=== PATIENT | female | born 1970 | race Caucasian/White ===

== ENCOUNTER 2019-05-27 18:46 | Emergency (ER) | payer BC ==
--- OUTSIDE RECORDS SUMMARY | 2019-05-27 18:48 | XMS REPORT ---
:1970 [facility] Address [address] [place] [address] Care Team Providers Name Role Phone MARY STACY Unavailable Unavailable Payers Payer Name Policy Type Policy Number Effective Date Expiration Date Problems This patient has no known problems. Allergies, Adverse Reactions, Alerts This patient has no known allergies or adverse reactions. Medications This patient has no known medications. Results Test Description Test Time Test Comments Text Results Atomic Results Result Comments TISSUE EXAM 2019-01-09 Surgical Pathology Report 14:01:00 Case: [id number] Authorizing Provider: Mary Stacy, Collected: 01/03/2019 Shila KIRBY Ordering Location: [facility] Received: 01/03/2019 1256 SERVICES Pathologist: Lucila Bauer MD Specimen: Breast, Left, Left Breast Lumpectomy Loadrant - Long Stitch Lateral, Short Stitch Superior, Ink Wilde Deep - XRay BREAST, LEFT, NEEDLE LOCALIZED LUMPECTOMY: - DUCTAL CARCINOMA IN SITU (DCIS) - GREATEST MICROSCOPIC MEASUREMENT : 16MM - PRESENT SCATTERED FOCI - IN 17 OF 70 SLIDES - OVER A MACROSCOPIC (GROSS) SPAN OF 53MM - NUCLEAR GRADE : 3/3 BY SBR CRITERIA - GROWTH PATTERN : SOLID, CLINGING, COMEDO - ASSOCIATED WITH CENTRAL NECROSIS - ASSOCIATED WITH CALCIFICATIONS - SURGICAL MARGINS : POSITIVE - LATERAL : POSITIVE - DCIS AT INKED MARGIN - INFERIOR : 0.1MM - ANTERIOR : 4MM - ALL OTHER MARGINS >10MM - BIOPSY SITE CHANGES (CLIP X 1) IDENTIFIED - ATYPICAL DUCTAL HYPERPLASIA - ATYPICAL LOBULAR HYPERPLASIA - SCATTERED FOCI - FLAT EPITHELIAL ATYPIA - COLUMNAR CELL CHANGES AND HYPERPLASIA - ASSOCIATED MICROCALCIFICATION - USUAL DUCTAL HYPERPLASIA - SCLEROSING ADENOSIS - APOCRINE METAPLASIA LINED CYSTSD - BENIGN BREAST TISSUE ASSOCIATED WITH CALCIFICATIONS Signing Pathologist Direct Phone Line: [phone] signed by Lucila Bauer MD on 01/09/2019 at 2:01 PMTUMOR STAGING (PATHOLOGY) Anatomic site of tumor : Left breastHistologic type : DCIS onlyHistologic grade : DCIS only; 3/3 by SBR criteriaTumor size : DCIS only; 16mmPrimary tumor (T) : pTis (DCIS)Lymph node (N) : pNxStage grouping : 0Margins : Positive (DCIS at lateral and close to inferior)The lumpectomy specimen contains scattered foci of high grade DCIS spanning a gross area measuring 53mm. Within this area, the largest contiguous focus of DCIS measures 16mm. The DCIS is present at the inked lateral margin and extends very close to (approx. 0.1mm) from the inked inferior margin of resection. DCIS OF THE BREAST (Breast DCIS - All Specimens)CLINICAL Radiologic Finding: Calcifications SPECIMEN Procedure: Excision (less than total mastectomy) Specimen Laterality: Left TUMOR Histologic Type: Ductal carcinoma in situ Size (Extent) of DCIS: Estimated size of DCIS greatest dimension in Millimeters (mm) is at least: 16 Millimeters (mm) Architectural Patterns: Comedo Architectural Patterns: Solid Nuclear Grade: Grade III (high) Accessory Findings: Necrosis: Present, central (expansive "comedo" necrosis) Microcalcifications: Present in DCIS Microcalcifications: Present in nonneoplastic tissue MARGINS Margins: Positive for DCIS Positive Margin(s): Lateral : Minimal / moderate LYMPH NODES Regional Lymph Nodes: No lymph nodes submitted or found PATHOLOGIC STAGE CLASSIFICATION (pTNM, AJCC 8th Edition) TNM Descriptors: Not applicable Primary Tumor (pT): pTis (DCIS) Regional Lymph Nodes (pN): Category (pN): pNX A. 07151 X 1Ductal carcinoma in situ of left breast A. Breast, left, left breast lumpectomy, long stitch lateral, short stitch superior, ink wilde Zachery. The specimen is received fresh for x-ray labeled with the patient's name and MR number as "breast left" with the description of "left breast lumpectomy, long stitch lateral, short stitch superior and inked wilde deep" and is an 18 gm, 7 x 8 x 2.5 cm, irregular, needle-localized partial mastectomy. The specimen is oriented with a short stitch superior, a long stitch lateral and ink deep. Two guide wires are exiting from superalateral and inferolateral portions of the specimen. The specimen is serially sectioned from lateral to medial into 12 consecutively ordered slices. No visible or palpable mass is identified. A clip is identified in slice #3, and it is towards the posterior end of the specimen. There are scattered irregular fibrous tissue in the breast parenchyma. Multiple foci of small calcifications were found by Faxitron. The breast parenchyma mainly consists of adipose tissue, 80%, and 20% fibrous tissue. It is enirely submitted.Ink code: Blue-posterior, red-anterior, black-inferior, and yellow-superior.Section code: A1-A5, lateral margin, perpendicular sections; A6-A11, slice #2 (A6 posterior margin, A7 anterior margin, A9 and A4 superior margins and A11 and A10 inferior margins); A12-A17, slice #3 (A12 posterior margin, A13 anterior margin, A14 contains clip and superior margin, A15 superior margin, A16 and E88oihqjbuv margin); A18-A23, slice #4 (A18 posterior and anterior margins, A19 and A20 superior margin, A21 and A22 inferior margins); A24-A30, slice #5 (A24 posterior and anterior margins, A25-A27 superior margin, A28-A30 inferior margin); A31-A37, slice #6 (A31 anterior and posterior margins, A33 and A34 superior margin, A35-A37 inferior margins); A38-A42, slice #7 (A38 anterior and posterior margins, A40 and 41 superior margin and A42 inferior margin); A43-A48, slice #8 (A43 anterior and posterior margins, A45 and A46 superior margin and A44 and A47 inferior margin); A49-A52, slice #9 (A49 posterior and anterior margins); A53-A57, slice #10 (A53 anterior and posterior margins); A58-A62, slice #11 (A58 contains anterior and posterior margins); A63-A70, medial margin, perpendicular sections. SM/ewPerformed.[facility], Department of Pathology, [address], [place] [address], MM, DIGITAL, 2019-01-03 This is for #[id number] - MM, MAMMO, 13:23:00 bracketingReason for DIGITAL, MAMMO, PATHOLOGY, PATHOLOGY, exam:->DCIS of the left LOCAL, LEFTNEEDLE LOCAL, LEFT breast LOCALIZATION: 01/03/2019PATIENT CONSENT: The procedure, risks and benefits, alternatives were discussed with the patient. Informed consent was obtained. A time-out was performed. A bracketed wire localization was performed for residual calcifications and biopsy clip in the lower outer left breast, middle and posterior depth. Local anesthetic was utilized. Two wires were placed from lateral approach under digital mammographic guidance to bracket the area of interest. Post-procedure digital mammogram confirmed appropriate positioning of the wires. IMPRESSION: NEEDLE LOCALIZATION Evelyn Dahl M.D. /:01/03/2019 13:23:26 Attending Technologist: Silvia Slater RT(R)(M), [facility] Oil Spot Washer: Bria Dawson RT(R)(M), [facility] [id number] , DIGITAL, 2019-01-03 Please bracket #[id number] - MM, MAMMO, 13:22:00 calcifications with the DIGITAL, MAMMO, PATHOLOGY, PATHOLOGY, clipReason for LOCAL, LEFTNEEDLE LOCAL, LEFT exam:->DCIS of the left LOCALIZATION: 01/03/2019PATIENT breast CONSENT: The procedure, risks and benefits, alternatives were discussed with the patient. Informed consent was obtained. A time-out was performed. A bracketed wire localization was performed for residual calcifications and biopsy clip in the lower outer left breast, middle and posterior depth. Local anesthetic was utilized. Two wires were placed from lateral approach under digital mammographic guidance to bracket the area of interest. Post-procedure digital mammogram confirmed appropriate positioning of the wires. IMPRESSION: NEEDLE LOCALIZATION Evelyn Dahl M.D. mc/:01/03/2019 13:22:59 Attending Technologist: Silvia Slater RT(R)(M), [facility] Oil Spot Washer: Bria Dawson RT(R)(M), [facility] [id number] C METABOLIC PANEL 2019-01-02 13:07:00 Test Item Value Reference Range Comments SODIUM (BEAKER) (test 142 meq/L 136-145 rmuo=892) POTASSIUM (BEAKER) (test 4.9 meq/L 3.5-5.1 dsvp=544) CHLORIDE (BEAKER) (test 111 meq/L 98-107 vmbq=854) CO2 (BEAKER) (test yjsl=014) 28 meq/L 22-29 BLOOD UREA NITROGEN (BEAKER) 16 mg/dL 7-21 (test hlqw=977) CREATININE (BEAKER) (test 0.74 mg/dL 0.57-1.25 vfjr=369) GLUCOSE RANDOM (BEAKER) 81 mg/dL 70-105 (test egkj=777) CALCIUM (BEAKER) (test 9.3 mg/dL 8.4-10.2 vzxz=635) EGFR (BEAKER) (test 84 mL/min/1.73 sq m ESTIMATED GFR IS NOT rzug=5507) ACCURATE CREATININE CLEARANCE IN PREDICTING GLOMERULAR FILTRATION RATE. ESTIMATED GFR IS NOT APPLICABLE FOR DIALYSIS PATIENTS. SCREEN, [id number] 12:57:00 Test Item Value Reference Range Comments TEST URINE (BEAKER) (test csgy=761) Negative CBC W/PLT COUNT & AUTO [id number] 12:32:00 Test Item Value Reference Range Comments WHITE BLOOD CELL COUNT (BEAKER) (test eqgu=847) 5.7 K/ L 3.5-10.5 RED BLOOD CELL COUNT (BEAKER) (test uauq=655) 4.83 M/ L 3.93-5.22 HEMOGLOBIN (BEAKER) (test jxek=929) 14.6 GM/DL 11.2-15.7 HEMATOCRIT (BEAKER) (test ffqn=153) 44.5 % 34.1-44.9 MEAN CORPUSCULAR VOLUME (BEAKER) (test fsfb=503) 92.1 fL 79.4-94.8 MEAN CORPUSCULAR HEMOGLOBIN (BEAKER) (test 30.2 pg 25.6-32.2 wxra=578) MEAN CORPUSCULAR HEMOGLOBIN CONC (BEAKER) (test 32.8 GM/DL 32.2-35.5 slcf=190) RED CELL DISTRIBUTION WIDTH (BEAKER) (test 12.4 % 11.7-14.4 qalw=299) PLATELET COUNT (BEAKER) (test fdni=650) 335 K/CU MM 150-450 MEAN PLATELET VOLUME (BEAKER) (test arty=747) 11.2 fL 9.4-12.3 NUCLEATED RED BLOOD CELLS (BEAKER) (test 0 /100 WBC 0-0 jele=665) NEUTROPHILS RELATIVE PERCENT (BEAKER) (test 48 % hlcm=006) LYMPHOCYTES RELATIVE PERCENT (BEAKER) (test 42 % bucd=017) MONOCYTES RELATIVE PERCENT (BEAKER) (test 7 % xkxl=530) EOSINOPHILS RELATIVE PERCENT (BEAKER) (test 2 % ewee=711) BASOPHILS RELATIVE PERCENT (BEAKER) (test 1 % mgiv=485) NEUTROPHILS ABSOLUTE COUNT (BEAKER) (test 2.74 K/ L 1.56-6.13 aijb=703) LYMPHOCYTES ABSOLUTE COUNT (BEAKER) (test 2.40 K/ L 1.18-3.74 vxgv=185) MONOCYTES ABSOLUTE COUNT (BEAKER) (test 0.38 K/ L 0.24-0.36 yhce=460) EOSINOPHILS ABSOLUTE COUNT (BEAKER) (test 0.11 K/ L 0.04-0.36 ezca=439) BASOPHILS ABSOLUTE COUNT (BEAKER) (test 0.03 K/ L 0.01-0.08 axxb=251) IMMATURE GRANULOCYTES-RELATIVE PERCENT (BEAKER) 0 % 0-1 (test gmwf=7573) BREAST,[id number] 18:15:00 RUN DATE: 11/02/18 [facility] PAGE 1 RUN TIME: 1915 Specimen Inquiry RUN USER: INTERFACE PATIENT: MABLE GUAN LOC: REINA #: [id number] AGE/SX: 48/F ROOM: RE10/26/18REG DR: Rach Arriola MD : 74 BED: DIS: STATUS: PRE REF TLOC: SPEC #: [id number] RECD: 10/26/18 STATUS: ED REYNOLDS #: [id number] FAISAL: 10/26/18- SUBM DR: Rach Arriola MD ENTERED: 10/27/18 SP TYPE: BREABX OTHR DR: Tasha Chase MD ORDERED: LEVEL IV/2 CODES: [id number] - BREAST, NOS COPIES TO: Rach Arriola MD [address] [place] [address] [place] [address] [place] [address] PROCEDURES: LEVEL IV (Incomplete) TISSUES: BREAST, NOS - RIGHT AND LEFT BREAST BIOPSY CLINICAL HISTORY 48 year old, suspicious calcs, 9 g x 9 cores; indet mass, prob FA, 14 g x 3 ( wpd) NOTE: LEFT breast: Biopsy: 10/26/18 @ 1350 In formalin: 10/26 @ 1432 Out of formalin: 10/27/18 @ 1824 RIGHT breast 9:00 (1.4 cm) : Biopsy: 10/26/18 @ 1435 In formalin: 10/26/18 @ 1436 Out of formalin: 10/27/18 @ 1824 FINAL DIAGNOSIS Specimen #1 LEFT breast, stereotactic biopsies: - 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 - central comedo necrosis - microcalcifications present - prominent paralobular chronic inflammation - prognostic markers for ER/ME are performed on block A1 CONTINUED ON NEXT PAGE RUN DATE: 11/02/18 [facility] PAGE 2 RUN TIME: 1915 Specimen Inquiry RUN USER: INTERFACE SPEC #: [id number] PATIENT : MABLE GUAN #[id number] (Continued) FINAL DIAGNOSIS (Continued) Specimen #2 RIGHT breast 9:00 mass (1.4 cm), core biopsies: - fibroadenoma COMMENT: The technical components were performed at [facility] [place], [address] [place] [address], [address], [place] [address]. The interpretation is provided by [facility], [address] [place] [address], [place] [address]. Controls receivedfrom [facility] stained appropriately. The following results are received from [facility], [place], [place] on November 02, 2018. BODY SITE: LEFT breast - [id number] HISTOLOGY IMAGE ANALYSIS, GLOBAL INTERPRETATION: ANALYSIS IS PERFORMED ON THE IN-SITU COMPONENT PRESENT. ER: POSITIVE Tumor Stained: 60% Intensity: 2+ Internal Control: Present, positive PgR: POSITIVE Tumor Stained: 5% Intensity: 2+ Internal Control: Present, positive COMMENT: Specimen handling met the requirements specified in the latest version of the ASCO/CAP guidelines. Tissue code 1 CPT code(s): 65293 x2, 00873-21, 06664-05 x3 cds/wpd 10/30/18 cds/wpd 11/01/18 cds/wpd GROSS DESCRIPTION ANATOMIC SOURCE OF TISSUE (per Requisition): 1. LEFT breast 2. RIGHT breast 9:00 (1.4 cm) Each specimen is labeled with the patient's name and medical record number. CONTINUED ON NEXT PAGE RUN DATE: 11/02/18 [facility] PAGE 3 RUN TIME: 1915 Specimen Inquiry RUN USER: INTERFACE SPEC #: [id number] PATIENT: MABLE GUAN #[id number] (Continued)-- GROSS DESCRIPTION (Continued) Specimen #1 is designated "LEFT breast" and consists of multiple loera-pink and yellow, fibrofatty, cylindrical soft tissues, 0.2 - 2.3cm in length, submitted in toto as A1 and A2, with microcalcifications as A1. Specimen #2 isdesignated "RIGHT breast 9:00" and consists of three loera-white, cylindrical , firm tissues, 0.6 - 1.4 cm in length, submitted in toto as B1. jm/wpd @ 8944 MICROSCOPIC DESCRIPTION Specimen #1 - tissue cores of LEFT breast, as seen in blocks A1 and A2, show a high-grade ductal carcinoma in- situ with comedo necrosis and microcalcifications. Prominent paralobular chronic inflammation is present and in some areas obscures duct outlines. Immunostains for myoepithelial markers (SMM-HC and p63) performed on blocks A1 and A2 are consistent with in-situ carcinoma. Specimen #2 - tissue cores of RIGHT breast 9:00 (1.4 cm mass) seen in block B1 are consistent with a fibroadenoma. cds/wpd @ 1019 / cds/wpd 11/01/18 Signed Brooks Mae 11/02/18 1815 ---- -------- END OF REPORT
--- NOTE | 2019-05-27 19:45 | RAD REPORT ---
EXAM DESCRIPTION: CT - CTFB CLINICAL HISTORY: Facial pain;Trauma Fall, trauma, facial pain and swelling. COMPARISON: No comparisons TECHNIQUE: Axial 2 mm thick images of the face were obtained with sagittal and coronal reconstructio n images. All CT scans are performed using dose optimization technique as appropriate and may include automated exposure control or mA/KV adjustment according to patient size. FINDINGS: No acute facial bone fracture is seen.The mandible is intact. The globes and orbital contents are grossly unremarkable.The paranasal sinuses and mastoids are clear . IMPRESSION: Negative for facial bone fracture.
--- NOTE | 2019-05-27 19:51 | EDPHYS ---
Physician Documentation [facility] Name: Brit Wilson Age: 48 yrs Sex: Female : 1970 Arrival Date: 05/27/2019 Time: 18:48 Bed 15 Private MD: ED Physician Evangelist Moncada HPI: 05/27 19:14 This 48 yrs old Female presents to ER via Ambulatory with complaints of Fall kb Injury. 19:14 Details of fall: The patient fell from an upright position, horse got spooked and pt kb was trying to move out of it's way when she got tripped by her sandal and fell hitting the fence post. Onset: The symptoms/episode began/occurred just prior to arrival. Associated injuries: The patient sustained injury to the head, abrasion, contusion, injury to the chest, specifically the left lateral posterior chest and left lateral anterior chest, tenderness, left bicep, ecchymosis, swelling. Severity of symptoms: At their worst the symptoms were mild, moderate, in the emergency department the symptoms are unchanged. The patient has not experienced similar symptoms in the past. The patient has not recently seen a physician. 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 - Social history:: Smoking status: Patient/guardian denies using tobacco. - Ebola Screening: : Patient denies travel to an Ebola-affected area in the 21 days before illness onset. ROS: 19:11 Constitutional: Negative for fever, chills, and weight loss, Eyes: Negative for injury, kb pain, redness, and discharge, ENT: Negative for injury, pain, and discharge, Neck: Negative for injury, pain, and swelling, Respiratory: Negative for shortness of breath, cough, wheezing, and pleuritic chest pain, Abdomen/GI: Negative for abdominal pain, nausea, vomiting, diarrhea, and constipation, Back: Negative for injury and pain, Neuro: Negative for headache, weakness, numbness, tingling, and seizure. 19:11 Cardiovascular: Positive for chest pain, of the left lateral anterior chest and left lateral posterior chest. 19:11 MS/extremity: Positive for ecchymosis, pain, swelling, tenderness, of the left bicep. 19:11 Skin: Positive for abrasion(s), ecchymosis, swelling, of the left cheek, left eye, left congregation and left jaw. Exam: 19:11 Constitutional: This is a well developed, well nourished patient who is awake, alert, kb and in no acute distress. Eyes: Pupils equal round and reactive to light, extra-ocular motions intact. Lids and lashes normal. Conjunctiva and sclera are non-icteric and not injected. Cornea within normal limits. Periorbital areas with no swelling, redness, or edema. ENT: Nares patent. No nasal discharge, no septal abnormalities noted. Tympanic membranes are normal and external auditory canals are clear. Oropharynx with no redness, swelling, or masses, exudates, or evidence of obstruction, uvula midline. Mucous membranes moist. Neck: Trachea midline, no thyromegaly or masses palpated, and no cervical lymphadenopathy. Supple, full range of motion without nuchal rigidity, or vertebral point tenderness. No Meningismus. Cardiovascular: Regular rate and rhythm with a normal S1 and S2. No gallops, murmurs, or rubs. Normal PMI, no JVD. No pulse deficits. Respiratory: Lungs have equal breath sounds bilaterally, clear to auscultation and percussion. No rales, rhonchi or wheezes noted. No increased work of breathing, no retractions or nasal flaring. Abdomen/GI: Soft, non-tender, with normal bowel sounds. No distension or tympany. No guarding or rebound. No evidence of tenderness throughout. Neuro: Awake and alert, GCS 15, oriented to person, place, time, and situation. Cranial nerves II-XII grossly intact. Motor strength 5/5 in all extremities. Sensory grossly intact. Cerebellar exam normal. Normal gait. 19:11 Head/face: Noted is no obvious of injury or deformity except abrasion(s), that are mild, of the left congregation and left jaw, ecchymosis, that is mild, of the left cheek and left eye, erythema, that is moderate, of the left cheek. 19:11 Chest/axilla: Inspection: normal, Palpation: tenderness, that is moderate, of the left lateral posterior chest and left lateral anterior chest, that totally reproduces the patient's complaints, Axilla: are normal. 19:11 Musculoskeletal/extremity: Extremities: grossly normal except: noted in the left bicep: ecchymosis, pain, swelling, tenderness, ROM: intact in all extremities, Circulation is intact in all extremities. Sensation intact. Vital Signs: 18:56 BP 142 / 96; Pulse 84; Resp 18; Temp 97.0; Pulse Ox 96% on R/A; Weight 90.72 kg (R); aj1 Height 5 ft. 5 in. (165.10 cm) (R); Pain 5/10; 20:10 BP 133 / 84; Pulse 79; Resp 19; Temp 97.3; Pulse Ox 97% on R/A; Pain 4/10; aa1 18:56 Body Mass Index 33.28 (90.72 kg, 165.10 cm) aj1 Han Coma Score: 18:56 Eye Response: spontaneous(4). Verbal Response: oriented(5). Motor Response: obeys aj1 commands(6). Total: 15. Trauma Score (Adult): 18:56 Eye Response: spontaneous(1); Verbal Response: oriented(1); Motor Response: obeys aj1 commands(2); Systolic BP: > 89 mm Hg(4); Respiratory Rate: 10 to 29 per min(4); Blakely Score: 15; Trauma Score: 12 MDM: 18:57 Patient medically screened. kb 19:13 Data reviewed: vital signs, nurses notes. Data interpreted: Pulse oximetry: on room air kb is 96 %. Interpretation: normal. 19:49 Counseling: I had a detailed discussion with the patient and/or guardian regarding: the kb historical points, exam findings, and any diagnostic results supporting the discharge/admit diagnosis, radiology results, the need for outpatient follow up, a family practitioner, to return to the emergency department if symptoms worsen or persist or if there are any questions or concerns that arise at home. 05/27 19:11 Order name: CT Facial Bones W/O Con; Complete Time: 19:46 kb 05/27 19:11 Order name: Chest Single View XRAY kb 05/27 19:11 Order name: Humerus Left XRAY kb Administered Medications: No medications were administered Disposition: 05/28 07:04 Co-signature as Attending Physician, Evangelist Monacda MD. rn Disposition: 05/27/19 19:50 Discharged to Home. Impression: Fall on same level from slipping, tripping and stumbling, Contusion of left upper arm, Abrasion and contusion of left side of face. - Condition is Stable. - Discharge Instructions: Hematoma, Laqi-gv-Ycor, Musculoskeletal Pain, Contusion, Yegi-qw-Fqqf. - Prescriptions for orphenadrine citrate 100 mg Oral Tablet Sustained Release - take 1 tablet by ORAL route 2 times per day As needed; 20 tablet. - Medication Reconciliation Form, Thank You Letter, Antibiotic Education, Prescription Opioid Use form. - Follow up: Emergency Department; When: As needed; Reason: Worsening of condition. Follow up: Private Physician; When: 2 - 3 days; Reason: Recheck today's complaints, Continuance of care, Re-evaluation by your physician. Signatures: Dispatcher [employer] EDRoxy Lira, GLOVE OPERATOR-C GLOVE OPERATOR-Ckb Beryl Reyes RN RN aj1 Carly Nickerson RN RN aa1 Evangelist Moncada MD MD consultant intern: (The following items were deleted from the chart) 05/27 20:12 19:50 05/27/2019 19:50 Discharged to Home. Impression: Fall on same level from aa1 slipping, tripping and stumbling; Contusion of left upper arm; Abrasion and contusion of left side of face. Condition is Stable. Forms are Medication Reconciliation Form, Thank You Letter, Antibiotic Education, Prescription Opioid Use. Follow up: Emergency Department; When: As needed; Reason: Worsening of condition. Follow up: Private Physician; When: 2 - 3 days; Reason: Recheck today's complaints, Continuance of care, Re-evaluation by your physician. kb
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
[2019-05-27 20:29] VITALS: BP 133/84; TEMP 97.3; O2SAT 97
--- NOTE | 2019-05-27 20:32 | RAD REPORT ---
EXAM DESCRIPTION: RAD - Humerus Left - 05/27/2019 8:16 pm CLINICAL HISTORY: PAIN COMPARISON: No comparisons FINDINGS: No acute fracture or dislocation seen.
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
== END 2019-05-27 20:12 | disposition home or self-care (01) ==
LOC: ER 18:46
DX: S00.81XA Abrasion of other part of head, initial encounter (principal); R07.9 Chest pain, unspecified; W01.198A Fall on same level from slipping, tripping and stumbling with subsequent striking against other object, initial encounter; Y93.89 Activity, other specified; Y92.9 Unspecified place or not applicable; Z85.3 Personal history of malignant neoplasm of breast
CPT/HCPCS: 70486; 71045; 76377; 99284